=== PATIENT | male | born 1970 | race Caucasian/White ===

== ENCOUNTER 2019-05-02 18:43 | Emergency (ER) | payer BC ==
[~2019-05-02] VITALS: Ht 167.6 cm; Wt 80.0 kg
[2019-05-02] MEDS ORDERED: DIAZEPAM 5 MG TABLET PO ONE (20:30)
[2019-05-02] MEDS ORDERED: KETOROLAC 60MG/2ML VIAL IM ONE (22:30)
[2019-05-02] MEDS ORDERED: HYDROCODONE/ACETAMINOPHEN 5/325MG TABLET PO ONE (22:30)
[2019-05-03 00:38] VITALS: BP 160/90
== END 2019-05-03 00:41 | disposition home or self-care (01) ==
LOC: ER 22:47
DX: S16.1XXA Strain of muscle, fascia and tendon at neck level, initial encounter (principal); X58.XXXA Exposure to other specified factors, initial encounter; Y93.53 Activity, golf; Y92.89 Other specified places as the place of occurrence of the external cause; Y99.8 Other external cause status; Z88.0 Allergy status to penicillin
CPT/HCPCS: 96372; 99283; J1885